=== PATIENT | female | born 1955 | race African-American/Black ===

== ENCOUNTER → 2019-09-04 | Outpatient (CLI) | payer OTHER, MEDICAID ==
--- NOTE | 2019-09-04 18:56 | REP ---
LEFT KNEE SERIES: Five views of the left knee performed. No acute fracture or dislocation is seen. There is mild lateral patellofemoral compartment narrowing with subchondral sclerosis and spurring. There is moderate medial joint space narrowing and mild lateral joint space narrowing, with subchondral sclerosis and spurring. There is a moderate joint effusion. There is spurring of the superior pole of the patella. IMPRESSION: Moderate degenerative changes. Moderate joint effusion. No acute fracture or dislocation. Electronically Signed by Sarmad Buitrago MD 09/04/2019 07:17 P
--- NOTE | 2019-09-04 19:25 | REP ---
RIGHT SHOULDER, FOUR VIEWS: Four views of the right shoulder are performed. There is no acute fracture or dislocation. There is mild joint space narrowing, subchondral sclerosis and spurring at the acromioclavicular and glenohumeral joints. IMPRESSION: Mild degenerative changes. No acute fracture or dislocation. Electronically Signed by Sarmad Buitrago MD 09/04/2019 07:36 P
== END ==
LOC: M LRY 18:02
PROVIDERS: ATTEND Physician Assistant
DX: S89.92XA Unspecified injury of left lower leg, initial encounter (principal); S49.91XA Unspecified injury of right shoulder and upper arm, initial encounter; M19.011 Primary osteoarthritis, right shoulder; M17.12 Unilateral primary osteoarthritis, left knee; M25.461 Effusion, right knee; X58.XXXA Exposure to other specified factors, initial encounter; Y92.9 Unspecified place or not applicable

== ENCOUNTER → 2019-09-17 | Outpatient (REF) | payer OTHER, MEDICAID ==
[2019-09-17 18:03] LABS: BASO # 0.1 10^3/uL (0.0-0.2); BASO % 0.5 % (0.0-1.0); EOS # 0.1 10^3/uL (0.0-0.5); EOS % 1.3 % (0.0-3.0); HEMATOCRIT 40.3 % (36.0-47.0); HEMOGLOBIN 11.9 g/dl (12.0-15.5); LYMPH # 2.3 10^3/uL (1.5-5.0); LYMPH % 24.7 % (24.0-44.0); MEAN CORPUSCULAR HEMOGLOBIN 21.4 pg (27.0-33.0); MEAN CORPUSCULAR HGB CONC 29.5 g/dl (32.0-36.5); MEAN CORPUSCULAR VOLUME 72.6 fl (80.0-96.0); MONO # 0.8 10^3/uL (0.0-0.8); NEUTROPHILS # 6.1 10^3/uL (1.5-8.5); PLATELET COUNT, AUTOMATED 261 10^3/uL (150-450); RED BLOOD COUNT 5.55 10^6/uL (4.00-5.40); WHITE BLOOD COUNT 9.4 10^3/uL (4.0-10.0)
[2019-09-17 18:11] LABS: HEMOGLOBIN A1c 8.8 %
[2019-09-17 18:35] LABS: MALB URINE SIEMENS 33.1 MG/L; MAU/CREAT RATIO 18.2 MCG/MG (0.0-30.0)
[2019-09-17 18:38] LABS: BLOOD UREA NITROGEN 10 MG/DL (7-18); CALCIUM LEVEL 9.9 MG/DL (8.8-10.2); CARBON DIOXIDE LEVEL 30 MEQ/L (21-32); CHLORIDE LEVEL 101 MEQ/L (98-107); CHOLESTEROL LEVEL 252 MG/DL (<200); CHOLESTEROL RISK RATIO 4.754 (<5); CREATININE FOR GFR 0.61 MG/DL (0.55-1.30); GLOMERULAR FILTRATION RATE > 60.0 (>45); GLUCOSE, FASTING 142 MG/DL (70-100); HDL CHOLESTEROL 53 MG/DL (>40); LDL CHOLESTEROL 155 MG/DL (<100); NON-HDL-C 199 MG/DL; POTASSIUM SERUM 4.3 MEQ/L (3.5-5.1); SODIUM LEVEL 137 MEQ/L (136-145); TRIGLYCERIDES LEVEL 219 MG/DL (<150)
[2019-09-17 18:45] LABS: VITAMIN B12 LEVEL 932 PG/ML (247-911)
== END ==
LOC: M SFHCLERA 11:07
PROVIDERS: ATTEND Family Medicine
DX: I10 Essential (primary) hypertension (principal); Z86.39 Personal history of other endocrine, nutritional and metabolic disease